=== PATIENT | male | born 1990 | race Caucasian/White ===

== ENCOUNTER 2017-02-25 17:04 | Emergency (ER) | payer OTHER ==
[~2017-02-25] VITALS: Ht 177.8 cm; Wt 99.0 kg
[2017-02-25] MEDS ORDERED: TYLE325T5 PO (17:36)
[2017-02-25] MEDS ORDERED: TRAZ-136 PO (17:36)
[2017-02-25] MEDS ORDERED: PROZ10CA7 PO (17:36)
[2017-02-25 19:13] LABS: MEAN CORPUSCULAR HEMOGLOBIN 29.8 pg (27.0-33.0); MEAN CORPUSCULAR HGB CONC 34.2 g/dl (32.0-36.5); MEAN CORPUSCULAR VOLUME 87.1 fl (80.0-96.0); RED CELL DISTRIBUTION WIDTH 12.2 % (11.5-14.5); WHITE BLOOD COUNT 7.6 K/mm3 (4.0-10.0)
[2017-02-25 19:41] LABS: METHADONE URINE NEGATIVE (NEGATIVE)
[2017-02-25 19:44] LABS: ALBUMIN 4.1 GM/DL (3.2-5.2); ALBUMIN/GLOBULIN RATIO 1.58 (1.00-1.93); ALKALINE PHOSPHATASE 60 U/L (45-117); ALT/SGPT 22 U/L (12-78); ANION GAP 9 MEQ/L (8-16); AST/SGOT 20 U/L (15-37); BILIRUBIN,DIRECT 0.1 MG/DL (0.0-0.2); BILIRUBIN,TOTAL 0.4 MG/DL (0.2-1.0); BLOOD UREA NITROGEN 19 MG/DL (7-18); CALCIUM LEVEL 8.6 MG/DL (8.5-10.1); CARBON DIOXIDE LEVEL 28 MEQ/L (21-32); CHLORIDE LEVEL 105 MEQ/L (98-107); CREATININE FOR GFR 1.35 MG/DL (0.70-1.30); GLOMERULAR FILTRATION RATE > 60.0 (>60); GLUCOSE, FASTING 103 MG/DL (70-105); POTASSIUM SERUM 4.2 MEQ/L (3.5-5.1); SODIUM LEVEL 142 MEQ/L (136-145); TOTAL PROTEIN 6.7 GM/DL (6.4-8.2)
[2017-02-25 20:23] VITALS: BP 122/72
== END 2017-02-25 20:24 | disposition home or self-care (01) ==
LOC: M ED 17:04
DX: F32.9 Major depressive disorder, single episode, unspecified (principal); G47.00 Insomnia, unspecified; M54.9 Dorsalgia, unspecified; F17.210 Nicotine dependence, cigarettes, uncomplicated; Z79.899 Other long term (current) drug therapy
CPT/HCPCS: 36415; 80048; 80076; 80307; 84443; 85027; 99284; G0480

== ENCOUNTER 2017-03-13 20:03 | Inpatient (IN) | payer OTHER ==
[~2017-03-13] VITALS: Ht 180.3 cm; Wt 94.8 kg
[~2017-03-13 20:03] MED LIST: PROZ10CA7 PO; TRAZ-136 PO; TYLE325T5 PO
[2017-03-13 21:11] LABS: MEAN CORPUSCULAR HEMOGLOBIN 29.8 pg (27.0-33.0); MEAN CORPUSCULAR HGB CONC 33.5 g/dl (32.0-36.5); MEAN CORPUSCULAR VOLUME 89.1 fl (80.0-96.0); RED CELL DISTRIBUTION WIDTH 12.4 % (11.5-14.5); WHITE BLOOD COUNT 6.4 K/mm3 (4.0-10.0)
[2017-03-13 21:29] LABS: METHADONE URINE NEGATIVE (NEGATIVE)
[2017-03-13] MEDS ORDERED: ACET-683 PO (21:39)
[2017-03-13 21:41] LABS: ALBUMIN 4.1 GM/DL (3.2-5.2); ALBUMIN/GLOBULIN RATIO 1.46 (1.00-1.93); ALKALINE PHOSPHATASE 63 U/L (45-117); ALT/SGPT 23 U/L (12-78); ANION GAP 7 MEQ/L (8-16); AST/SGOT 25 U/L (15-37); BILIRUBIN,DIRECT 0.1 MG/DL (0.0-0.2); BILIRUBIN,TOTAL 0.4 MG/DL (0.2-1.0); BLOOD UREA NITROGEN 26 MG/DL (7-18); CALCIUM LEVEL 8.8 MG/DL (8.5-10.1); CARBON DIOXIDE LEVEL 30 MEQ/L (21-32); CHLORIDE LEVEL 107 MEQ/L (98-107); CREATININE FOR GFR 1.24 MG/DL (0.70-1.30); GLOMERULAR FILTRATION RATE > 60.0 (>60); GLUCOSE, FASTING 85 MG/DL (70-105); POTASSIUM SERUM 4.2 MEQ/L (3.5-5.1); SODIUM LEVEL 144 MEQ/L (136-145); TOTAL PROTEIN 6.9 GM/DL (6.4-8.2)
[2017-03-13] MEDS ORDERED: ACETAMINOPHEN TAB 650MG DOSE (2X325MG) PO PRN (23:45)
[2017-03-13] MEDS ORDERED: MOM 30ML SUSPENSION UDC PO PRN (23:45)
[2017-03-13] MEDS ORDERED: MAALOX 30 ML SUSP *UDC PO PRN (23:45)
[2017-03-14 06:18] VITALS: BP 119/59
--- NOTE | 2017-03-14 10:46 | HPEPDOC ---
Medical History and Physical Date of Admission Mar 13, 2017 at 23:40 History and Physical PCP: PSYCHIATRIC ATTENDING: Dr. Adan Armenta HPI: 27yoM admitted to [facility] for unspecified depressive disorder, being medically examined today. No acute medical complaints today. Denies any fevers, chills, weakness, fatigue, FINNEY, CP, SOB, cough, palpitations, abdominal pain, N/V /D or changes in bowel or bladder habits. PMHx: insomnia anxiety depression H/O SI PSHX: denies SOCHX: Resides in: [place], from [place] Marital Status: single Kids: none Employment: Active duty Tobacco use: 2 pp week ETOH: 1-2 weekends Illicit Drugs: Denies IV Drug Use: Denies Tattoos done unprofessionally: Denies FAMHX: Mother: Alive, well Father: Alive, CAD Siblings: Alive, well Children: none Unexpected deaths due to medical reasons: None. ROS: As noted in HPI, otherwise 11pt ROS of systems reviewed and unremarkable. PE: GEN: 27yoM, appears stated age. Well-nourished, well developed. No acute distress. Alert and oriented x 3. Pleasant, interactive. HEENT: Normocephalic, atraumatic. Pupils are equal, round, and reactive to light. Extraocular movements are intact. No nystagmus appreciated. Sclera are nonicteric. Conjunctiva without injection. Nose midline. Nasal turbinates without bogginess. EACs both patent BL. TMs both visualized and fong with good cone of light, no bulging or erythema. No facial asymmetry. Moist mucous membranes. Dentition fair. Pharynx pink and moist, no cobblestoning. Neck supple , trachea midline. No lymphadenopathy or thyromegaly appreciated. CHEST: Regular rate and rhythm, +S1, +S2 LUNGS: Clear to auscultation bilaterally. No wheezes, rales, or rhonchi. Breathing appears symmetric and easy. Patient is speaking in full sentences. No accessory muscle use. ABD: Round, soft, non-tender, non-distended. +Bowel sounds throughout. No rebound or guarding. No costovertebral angle tenderness. EXT: Pulses 2+ bilaterally dorsalis pedis and radial. No lower extremity edema appreciated. SKIN: [place], dry, warm. Capillary refill <2sec. No rashes. NEURO: Alert and oriented x 3. Cranial nerves III-XII are intact. No focal deficits appreciated. EKG: pending. A&P: 27yoM admitted to [facility] for unspecified depressive disorder 1. Psych. Plan per Psychiatry. Obtain baseline EKG to assure the safety of psychiatric medications as they can prolong the QT interval. 2. Nicotine dependence. Patch available. 3. Follow up with PCP on discharge. 4. Staff member Ed present throughout exam. Vital Signs Vital Signs Date Time Temp Pulse Resp B/P (MAP) Pulse Ox O2 Delivery O2 Flow Rate FiO2 03/14/17 06:18 98.5 68 16 119/59 (79) 03/14/17 00:08 98 Room Air Laboratory Data Labs 24H Laboratory Tests 2 03/13/17 20:57: Anion Gap 7L, Glomerular Filtration Rate > 60.0, Calcium Level 8.8, Aspartate Amino Transf (AST/SGOT) 25, Alanine Aminotransferase (ALT/SGPT) 23, Alkaline Phosphatase 63, Total Bilirubin 0.4, Direct Bilirubin 0.1, Total Protein 6.9, Albumin 4.1, Albumin/Globulin Ratio 1.46, Thyroid Stimulating Hormone (TSH) 2.110, Salicylates Level < 1.7L, Urine Amphetamines Screen NEGATIVE, Urine Benzodiazepines Screen NEGATIVE, Urine Opiates Screen NEGATIVE, Urine Methadone Screen NEGATIVE, Acetaminophen Level < 2.0L, Urine Barbiturates Screen NEGATIVE , Urine Phencyclidine Screen NEGATIVE, Urine Cocaine Metabolite Screen NEGATIVE , Urine Cannabinoids Screen NEGATIVE, Ethyl Alcohol Level < 0.003 CBC/BMP Laboratory Tests 03/13/17 20:57 Red Blood Count 4.94, Mean Corpuscular Volume 89.1, Mean Corpuscular Hemoglobin 29.8, Mean Corpuscular Hemoglobin Concent 33.5, Red Cell Distribution Width 12.4 Home Medications Scheduled Fluoxetine HCl (Prozac) 10 Mg Cap, 10 MG PO DAILY Trazodone HCl (Trazodone HCl) 100 Mg Tab, 100 MG PO QHS Scheduled PRN Acetaminophen (Acetaminophen Extra Stren) 500 Mg Tab, 1,000 MG PO Q6H PRN for HEADACHE OR PAIN Allergies Coded Allergies: No Known Drug Allergy (Verified Allergy, Unknown, 03/13/17) Litzy Gutierrez Mar 14, 2017 10:46
[2017-03-14 12:00] VITALS: BP 139/63
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
[2017-03-14] MEDS: NICOTINE 14 MG/24 HR TRANSDERMAL TD SCH (16:34)
[2017-03-14 18:00] VITALS: BP 111/53
[2017-03-15 06:50] VITALS: BP 126/67
[2017-03-15] MEDS: NICOTINE 14 MG/24 HR TRANSDERMAL TD SCH (08:33)
[2017-03-15] MEDS ORDERED: hydrOXYzine 25 MG TAB PO PRN (15:00)
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
--- NOTE | 2017-03-15 16:00 | ECGEPIP ---
Stationary ECG Study [facility] Test Date: 2017-03-15 Pat Name: SHUKRI BAIRES Department: Room: [place] [address] Gender: M Community Director: MANUEL : 1990 Requested By: Litzy Gutierrez Order Number: [id number] Reading MD: Gardenia Fry Measurements Intervals [place] Rate: 51 P: 57 [place]: 163 QRS: 79 QRSD: 98 T: 14 QT: 410 QTc: 379 Interpretive Statements SINUS BRADYCARDIA ST ELEVATION, PROBABLY EARLY REPOLARIZATION SEPTAL LEADS INF T WAVE ABN NO PRIOR Electronically Signed On 03-15-2017 16:00:05 EDT by Gardenia Fry
[2017-03-15 18:00] VITALS: BP 116/60
[2017-03-16 06:00] VITALS: BP 117/85
[2017-03-16] MEDS: NICOTINE 14 MG/24 HR TRANSDERMAL TD SCH (08:09)
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
[2017-03-16 18:00] VITALS: BP 138/63
[2017-03-16] MEDS: traZODone 100 MG TAB PO PRN (21:01)
[2017-03-17 06:42] VITALS: BP 116/55
[2017-03-17] MEDS: NICOTINE 14 MG/24 HR TRANSDERMAL TD SCH ×2 (09:00→12:44)
--- NOTE | 2017-03-17 10:51 | MHIPNPDOC ---
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 He still expresses a lot of frustration about the way that he has been treated by some people in the [employer]. Reports he is responding well to medication , is eating well, feels less angry and depressed. VITAL SIGNS: See below. NEW TEST RESULTS: N/A CURRENT MEDICATIONS: See below. MENTAL STATUS EXAMINATION: Patient is a 27-year old male, who is alert, cooperative with good eye contact, dressed in personal close. Speech: Is spontaneous and fluid. Language skills are good. Thought processes including: Intact. Thought content: Angry about all the events that took place at [place] and let him to his inpatient hospitalization. Abstract reasoning, and computation: Good. Description of associations: Good. Description of abnormal or psychotic thoughts: Denies auditory and visual hallucinations, denies thought delusions and denies homicidal or suicidal thoughts. Judgment: Fair. Insight: Fair. Orientation: Oriented 3. Recent and remote memory: Intact. Attention span and concentration: Fair. Language: Normal. Fund of knowledge: Adequate. Mood: Slightly irritable. Affect: Congruent to mood. DIAGNOSES: 1. Adjustment disorder with depressed mood versus major depressive disorder 2. Unspecified Anxiety Disorder, r/o situational vs. generalized anxiety disorder 3. Unspecified Trauma-Stressor Related Disorder, r/o PTSD ASSESSMENT: ASSESSMENT: Patient has had a good response to medications, is finding that attending groups has been useful to him. We will need to continue attending groups, will benefit from psychotherapy and talking to his chain of command about his problems. MANAGEMENT PLAN: Continue with current medications, encourage him to keep attending groups. TIME SPENT: 30 minutes. Vital Signs Vital Signs Date Time Temp Pulse Resp B/P (MAP) Pulse Ox O2 Delivery O2 Flow Rate FiO2 03/17/17 06:42 98.1 53 16 116/55 (75) 03/15/17 06:50 Room Air 03/14/17 00:08 98 Current Medications Current Medications Acetaminophen (Tylenol Tab) 650 mg Q6HP PRN PO HEADACHE or DISCOMFORT; Start at 23:45; Stop 04/12/17 at 23:44 Al Hydrox/Mg Hydrox/Simethicone (Mylanta) 30 ml Q4HP PRN PO HEARTBURN/ INDIGESTION; Start 03/13/17 at 23:45; Stop 04/12/17 at 23:44 Aripiprazole (AbiLIFY) 5 mg QAM PO Last administered on 03/17/17 08:28; Start 03/15/17 at 09:00; Stop 04/14/17 at 08:59 Home Med (Med Rec Complete!) ASDIRECTED XX ; Start 03/13/17 at 21:45; Stop at 21:45; Status DC Hydroxyzine HCl (Atarax) 25 mg Q6HP PRN PO ANXIETY; Start 03/15/17 at 15:00; Stop 04/14/17 at 14:59 Magnesium Hydroxide (Milk Of Magnesia) 30 ml DAILYPRN PRN PO CONSTIPATION; Start 03/13/17 at 23:45; Stop 04/12/17 at 23:44 Nicotine (Nicoderm Cq 14mg) 1 patch DAILY TD ; Start 03/14/17 at 09:00; Stop at 08:59 Trazodone HCl (Desyrel) 100 mg QHSP PRN PO INSOMNIA Last administered on 21:01; Start 03/13/17 at 23:45; Stop 04/12/17 at 23:44 Allergies Coded Allergies: No Known Drug Allergy (Verified Allergy, Unknown, 03/13/17) RADU TREVINO MD Mar 17, 2017 10:51
[2017-03-17 18:00] VITALS: BP 145/72
[2017-03-17] MEDS: traZODone 100 MG TAB PO PRN (21:16)
[2017-03-18 06:34] VITALS: BP 130/64
[2017-03-18] MEDS: NICOTINE 14 MG/24 HR TRANSDERMAL TD SCH (08:10)
--- NOTE | 2017-03-18 09:22 | IPNPDOC ---
Date Seen The patient was seen on 03/18/17. Progress Note HPI: 27yoM admitted to [facility] for unspecified depressive disorder, being medically examined today. Reports today that he has constant neck pain, mid back pain, and low back pain. He states the pain has been going on for a few months, began last year. And that he had an injury during [employer] school in 2016. He states he has seen his PCP previously with imaging indicating muscular spasm. He states he usually uses Tylenol for the pain. He states that if he is marching, doing PT, or standing information sometimes he has severe pain. He states the pain is achy down his spine. There is no radiation of pain down the arms or down the legs. No weakness in upper or lower extremities. No paresthesias in upper or lower extremities. No loss of bowel or bladder control. Denies any fevers, chills, weakness, fatigue, FINNEY, CP, SOB, cough, palpitations , abdominal pain, N/V/D or changes in bowel or bladder habits. PMHx: insomnia anxiety depression H/O SI PSHX: denies PE: GEN: 27yoM, appears stated age. Well-nourished, well developed. No acute distress. Alert and oriented x 3. Pleasant, interactive. HEENT: Normocephalic, atraumatic. Pupils are equal, round, and reactive to light. Extraocular movements are intact. No nystagmus appreciated. Sclera are nonicteric. Conjunctiva without injection. Nose midline. Nasal turbinates without bogginess. EACs both patent BL. TMs both visualized and fong with good cone of light, no bulging or erythema. No facial asymmetry. Moist mucous membranes. Dentition fair. Pharynx pink and moist, no cobblestoning. Neck supple , trachea midline. No lymphadenopathy or thyromegaly appreciated. CHEST: Regular rate and rhythm, +S1, +S2 LUNGS: Clear to auscultation bilaterally. No wheezes, rales, or rhonchi. Breathing appears symmetric and easy. Patient is speaking in full sentences. No accessory muscle use. ABD: Round, soft, non-tender, non-distended. +Bowel sounds throughout. No rebound or guarding. No costovertebral angle tenderness. EXT: Pulses 2+ bilaterally dorsalis pedis and radial. No lower extremity edema appreciated. SKIN: [place], dry, warm. Capillary refill <2sec. No rashes. NEURO: Alert and oriented x 3. Cranial nerves III-XII are intact. No focal deficits appreciated. Strength is normal in upper and lower extremities. No loss of sensation. There is currently no tenderness with palpation over the spine. EKG: SINUS BRADYCARDIA ST ELEVATION, PROBABLY EARLY REPOLARIZATION SEPTAL LEADS INF T WAVE ABN NO PRIOR A&P: 27yoM admitted to [facility] for unspecified depressive disorder 1. Psych. Plan per Psychiatry. EKG on file. 2. Nicotine dependence. Patch available. 3. Chronic neck pain/mid back pain/low back pain. Request x-ray of the cervical spine, thoracic spine, lumbosacral spine. Continue with Tylenol 650 mg every 6 hours as needed. Patient declines pain management opinion. Consider pain management if needed. Plan for Outpatient follow-up with PCP. 4. Follow up with PCP on discharge. 5. Staff member Lisseth LAI present throughout exam. VS, I&O, 24H, Fishbone Vital Signs/I&O Vital Signs Date Time Temp Pulse Resp B/P (MAP) Pulse Ox O2 Delivery O2 Flow Rate FiO2 03/18/17 06:34 98.0 61 16 130/64 (86) Room Air 03/14/17 00:08 98 Laboratory Data 24H LABS Item Value Date Time White Blood Count 6.4 K/mm3 03/13/172056 Red Blood Count 4.94 M/mm3 03/13/172056 Hemoglobin 14.7 g/dl 03/13/172056 Hematocrit 44.0 % 03/13/172056 Mean Corpuscular Volume 89.1 fl 03/13/172056 Mean Corpuscular Hemoglobin 29.8 pg 03/13/172056 Mean Corpuscular Hemoglobin Concent 33.5 g/dl 03/13/172056 Red Cell Distribution Width 12.4 % 03/13/172056 Platelet Count 187 k/mm3 03/13/172056 Sodium Level 144 MEQ/L 03/13/172056 Potassium Level 4.2 MEQ/L 03/13/172056 Chloride Level 107 MEQ/L 03/13/172056 Carbon Dioxide Level 30 MEQ/L 03/13/172056 Anion Gap 7 MEQ/L L 03/13/172056 Blood Urea Nitrogen 26 MG/DL H 03/13/172056 Creatinine 1.24 MG/DL 03/13/172056 Glomerular Filtration Rate > 60.0 03/13/172056 Fasting Glucose 85 MG/DL 03/13/172056 Calcium Level 8.8 MG/DL 03/13/172056 Total Bilirubin 0.4 MG/DL 03/13/172056 Direct Bilirubin 0.1 MG/DL 03/13/172056 Aspartate Amino Transf (AST/SGOT) 25 U/L 03/13/172056 Alanine Aminotransferase (ALT/SGPT) 23 U/L 03/13/172056 Alkaline Phosphatase 63 U/L 03/13/172056 Total Protein 6.9 GM/DL 03/13/172056 Albumin 4.1 GM/DL 03/13/172056 Albumin/Globulin Ratio 1.46 03/13/172056 Thyroid Stimulating Hormone (TSH) 2.110 uIU/ML 03/13/172056 Litzy Gutierrez Mar 18, 2017 09:22
--- NOTE | 2017-03-18 15:02 | MHIPNPDOC ---
[facility] Progress Note Progress Note DATE OF SERVICE: 03/18/17 HISTORY: ID: Patient is a 27-year-old male, single, domiciled since Dec 2015, from [facility], was living with Uncle & Aunt, no kids, PPH one ER visit 2 weeks ago for depression, following up with behavioral health [place] [employer] for about a year for psychotherapy and medication management and currently on Prozac, trazodone and gabapentin, no previous psych admissions, no substance abuse, h/o Tylenol OD 20yo- no treatment, [facility] head injury in 2013- LOC, BIB [place], yesterday for SI & depression. Patient was seen and evaluated for his progress in the inpatient psychiatry Unit. On evaluation, patient reported that he has been feeling better and less sad and irritable. He reported that he has been going to the group activities in the unit and likes the new ways of communication, thought in the unit. He also reported that he tried to use role-playing to understand other peoples perspective while discussing some situations which are problematic for him multiple times in the past. He thinks that he is able to understand other's perspective much better playing this role and seeing how he is perceived by others. He reported being compliant with the medications and denies any side effects. Also, reported sleeping and eating better. He wants to continue current treatment, even when he leaves the hospital. Discussed about early symptoms of sadness and how to seek help. He continued to deny any suicidal or homicidal ideations, intentions or plans and reported with the current treatment , His mood has been stabilizing more. VITAL SIGNS: See below. CURRENT MEDICATIONS: See below. MENTAL STATUS EXAMINATION: 27yo male sitting in the chair, looks appropriate for the stated age, fair hygiene and grooming, normal psychomotor activities, no abnormal movements, cooperative with fair eye contact,speech is normal in rate, rhythm, amount and prosody, mood is 'fine', affect full and mood congruent, thought process is logical and goal directed, denies suicidal and homicidal ideations, denies hallucinations, no delusions elicited, aaox3, limited insight, fair judgement and impulse control DIAGNOSES: 1. Adjustment disorder with depressed mood versus major depression disorder. History of ADHD 2., Rule out PTSD. 3.. Rule out anxiety disorder. ASSESSMENT: Biologically, not having any family history of psychiatric illness can be protective for the patient while having head injury in 2012 can be perpetuating factor having no substance abuse and medical problems can be protective Psychologically, patient seems to have poor coping skills and defense mechanisms of projection, splitting, and aggression Socially, possible negligence of the biological mother leading up to CPS case can be perpetuating factor for the patient. Financial problems and stresses at work can also be perpetuating factors MANAGEMENT PLAN: We'll titrate the dose of Abilify. Start hydroxyzine 25 mg every 6 hours when necessary for anxiety and agitation. TIME SPENT:. 15 minutes. Vital Signs Vital Signs Date Time Temp Pulse Resp B/P (MAP) Pulse Ox O2 Delivery O2 Flow Rate FiO2 03/18/17 06:34 98.0 61 16 130/64 (86) Room Air 03/14/17 00:08 98 Current Medications Current Medications Acetaminophen (Tylenol Tab) 650 mg Q6HP PRN PO HEADACHE or DISCOMFORT; Start at 23:45; Stop 04/12/17 at 23:44 Al Hydrox/Mg Hydrox/Simethicone (Mylanta) 30 ml Q4HP PRN PO HEARTBURN/ INDIGESTION; Start 03/13/17 at 23:45; Stop 04/12/17 at 23:44 Aripiprazole (AbiLIFY) 5 mg QAM PO Last administered on 03/18/17 08:09; Start 03/15/17 at 09:00; Stop 04/14/17 at 08:59 Home Med (Med Rec Complete!) ASDIRECTED XX ; Start 03/13/17 at 21:45; Stop at 21:45; Status DC Hydroxyzine HCl (Atarax) 25 mg Q6HP PRN PO ANXIETY; Start 03/15/17 at 15:00; Stop 04/14/17 at 14:59 Magnesium Hydroxide (Milk Of Magnesia) 30 ml DAILYPRN PRN PO CONSTIPATION; Start 03/13/17 at 23:45; Stop 04/12/17 at 23:44 Nicotine (Nicoderm Cq 14mg) 1 patch DAILY TD Last administered on 03/17/17 12: 44; Start 03/14/17 at 09:00; Stop 04/13/17 at 08:59 Trazodone HCl (Desyrel) 100 mg QHSP PRN PO INSOMNIA Last administered on 8/27/ 17at 21:16; Start 03/13/17 at 23:45; Stop 04/12/17 at 23:44 Allergies Coded Allergies: No Known Drug Allergy (Verified Allergy, Unknown, 03/13/17) CARON CHAVEZ MD Mar 18, 2017 15:02
--- NOTE | 2017-03-18 15:30 | REP ---
Cervical spine series: Eight views. History: Neck pain. Findings: Lateral views done in flexion, extension and neutral position show preserved vertebral body heights and normal alignment. Disc spaces are maintained. AP and open mouth odontoid views are unremarkable. Oblique images demonstrate intact neural foramina bilaterally at each cervical level. Facets are normally aligned. Swimmers lateral view shows no additional abnormality. Impression: Negative cervical spine radiographs. Signed by Jeremias Chambers MD 03/18/2017 06:35 P
--- NOTE | 2017-03-18 15:31 | REP ---
Lumbar spine series: Five views. History: Pain. Findings: Five views of the lumbar spine show preserved vertebral body heights and normal alignment. Pedicles and posterior elements are intact. Disc spaces are maintained. Psoas margins are symmetric. There is no evidence of spondylolysis or spondylolisthesis. Impression: Negative lumbar spine radiographs. Signed by Jeremias Chambers MD 03/18/2017 06:36 P
--- NOTE | 2017-03-18 15:32 | REP ---
Thoracic spine series: Two views. History: Pain. Findings: There is discogenic spurring anteriorly at the mid and lower thoracic levels. This is consistent with some degenerative disc disease. Pedicles and posterior elements are intact. No curvature is seen. No bony destructive lesion is seen. No paravertebral soft-tissue mass noted. Impression: Discogenic spurring at the mid and lower thoracic levels. Otherwise negative. Signed by Jeremias Chambers MD 03/18/2017 06:36 P
[2017-03-18 18:00] VITALS: BP 138/61
[2017-03-18] MEDS: traZODone 100 MG TAB PO PRN (21:12)
[2017-03-19 07:01] VITALS: BP 124/63
[2017-03-19] MEDS: NICOTINE 14 MG/24 HR TRANSDERMAL TD SCH (08:06)
--- NOTE | 2017-03-19 14:34 | MHIPNPDOC ---
[facility] Progress Note Progress Note DATE OF SERVICE: 03/19/17 HISTORY: ID: Patient is a 27-year-old male, single, domiciled since Dec 2015, from [facility], was living with Uncle & Aunt, no kids, PPH one ER visit 2 weeks ago for depression, following up with behavioral health in the [place] for about a year for psychotherapy and medication management and currently on Prozac, trazodone and gabapentin, no previous psych admissions, no substance abuse, h/o Tylenol OD 20yo- no treatment, [facility] head injury in 2013- LOC, BIB [place] for SI & depression. Patient was seen and evaluated. He talked about his suicide attempt with overdose at the age of 20 years and reported that everyone around him look down to him when he is the one who is suffering and that's why he chose not to get any treatment, even after taking overdose of Tylenol. Even this time when he was having suicidal ideations with plans to overdose, he talked about not getting any help and just take the overdose and hope to . Encouraged patient to seek help when he is feeling depressed and also discussed about safety planning. Patient reported that he has never been explained about safety planning at [facility]. After answering certain questions, He was willing to engage in safety planning and willing to call 911 or talk with chain of command if he is having suicidal ideations come back again. Patient continued to worry about article 15 from [employer] and getting demoted, which will further increase his financial problems and increase his stressors. Discussed about ways to get help to decrease stresses and is planning to pursue a part- time job, which may help to pay the bills. Patient seems to be improving in mood with current treatment and denies any mood swings recently, which he used to have while being on Prozac, discussed about when necessary medications for anxiety and agitation and he reported that he would like to use them even when he is discharged from the hospital. He reported that he is learning new coping skills but the real test of those skills will be when he is back in the [place] and will need when necessary medications Under stress. VITAL SIGNS: See below. CURRENT MEDICATIONS: See below. MENTAL STATUS EXAMINATION: 27yo male sitting in the chair, looks appropriate for the stated age, fair hygiene and grooming, normal psychomotor activities, no abnormal movements, cooperative with fair eye contact,speech is normal in rate, rhythm, amount and prosody, mood is 'nervous', affect full and mood congruent, thought process is logical and goal directed, denies suicidal and homicidal ideations, denies hallucinations, no delusions elicited, aaox3, limited insight, fair judgement and impulse control DIAGNOSES: 1. Adjustment disorder with depressed mood versus major depression disorder. History of ADHD 2., Rule out PTSD. 3.. Rule out anxiety disorder. ASSESSMENT: Biologically, not having any family history of psychiatric illness can be protective for the patient while having head injury in 2013 can be perpetuating factor having no substance abuse and medical problems can be protective Psychologically, patient seems to have poor coping skills and defense mechanisms of projection, splitting, and aggression Socially, possible negligence of the biological mother leading up to CPS case can be perpetuating factor for the patient. Financial problems and stresses at work can also be perpetuating factors MANAGEMENT PLAN: Continue current treatment, patient is willing to work with outpatient treatment providers for further changes in meds. TIME SPENT:. 15 minutes. Vital Signs Vital Signs Date Time Temp Pulse Resp B/P (MAP) Pulse Ox O2 Delivery O2 Flow Rate FiO2 03/19/17 07:01 98.1 53 16 124/63 (83) Room Air 03/14/17 00:08 98 Current Medications Current Medications Acetaminophen (Tylenol Tab) 650 mg Q6HP PRN PO HEADACHE or DISCOMFORT; Start at 23:45; Stop 04/12/17 at 23:44 Al Hydrox/Mg Hydrox/Simethicone (Mylanta) 30 ml Q4HP PRN PO HEARTBURN/ INDIGESTION; Start 03/13/17 at 23:45; Stop 04/12/17 at 23:44 Aripiprazole (AbiLIFY) 5 mg QAM PO Last administered on 03/19/17t 08:06; Start 03/15/17 at 09:00; Stop 04/14/17 at 08:59 Home Med (Med Rec Complete!) ASDIRECTED XX ; Start 03/13/17 at 21:45; Stop at 21:45; Status DC Hydroxyzine HCl (Atarax) 25 mg Q6HP PRN PO ANXIETY; Start 03/15/17 at 15:00; Stop 04/14/17 at 14:59 Magnesium Hydroxide (Milk Of Magnesia) 30 ml DAILYPRN PRN PO CONSTIPATION; Start 03/13/17 at 23:45; Stop 04/12/17 at 23:44 Nicotine (Nicoderm Cq 14mg) 1 patch DAILY TD Last administered on 03/17/17 12: 44; Start 03/14/17 at 09:00; Stop 04/13/17 at 08:59 Trazodone HCl (Desyrel) 100 mg QHSP PRN PO INSOMNIA Last administered on 21:12; Start 03/13/17 at 23:45; Stop 04/12/17 at 23:44 Allergies Coded Allergies: No Known Drug Allergy (Verified Allergy, Unknown, 03/13/17) CARON CHAVEZ MD Mar 19, 2017 14:34
[2017-03-19] MEDS ORDERED: TRAZ10TA PO (17:31)
[2017-03-19] MEDS ORDERED: ARIP5TA PO (17:31)
[2017-03-19] MEDS ORDERED: HYDR-3363 PO (17:31)
[2017-03-19 18:10] VITALS: BP 116/54
[2017-03-19] MEDS: traZODone 100 MG TAB PO PRN (21:57)
[2017-03-20] MEDS: NICOTINE 14 MG/24 HR TRANSDERMAL TD SCH (08:17)
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
== END 2017-03-20 08:25 | disposition home or self-care (01) | DRG 881 ==
LOC: M ED 20:03 → M ED INP 23:40 → M PSY 03-14 00:25
PROVIDERS: ADMIT Psychiatry & Neurology Psychiatry; ATTEND Psychiatry & Neurology Psychiatry
DX: F43.21 Adjustment disorder with depressed mood (principal); F32.9 Major depressive disorder, single episode, unspecified; F41.9 Anxiety disorder, unspecified; M54.2 Cervicalgia; M54.5 Low back pain; M54.6 Pain in thoracic spine; G47.00 Insomnia, unspecified; F17.210 Nicotine dependence, cigarettes, uncomplicated; Z56.5 Uncongenial work environment; Z56.4 Discord with boss and workmates; Z91.5 Personal history of self-harm; Z79.899 Other long term (current) drug therapy

== ENCOUNTER 2017-09-04 21:47 | Emergency (ER) | payer OTHER ==
[2017-09-05] MEDS: NAPROXEN 250 MG TAB PO (00:27)
[2017-09-05] MEDS: CYCLOBENZAPRINE 10 MG TAB PO (00:27)
== END 2017-09-05 00:42 | disposition home or self-care (01) ==
LOC: M ED 21:47
DX: S39.012A Strain of muscle, fascia and tendon of lower back, initial encounter (principal); X50.0XXA Overexertion from strenuous movement or load, initial encounter; Y92.89 Other specified places as the place of occurrence of the external cause; F17.200 Nicotine dependence, unspecified, uncomplicated
CPT/HCPCS: 99283

== ENCOUNTER 2017-12-14 18:10 | Inpatient (IN) | payer OTHER ==
[2017-12-14 18:32] LABS: BEDSIDE GLUCOSE 139 MG/DL (70-105)
[2017-12-14 18:32] LABS: BASO # 0.1 10^3/uL (0.0-0.2); BASO % 0.7 % (0.0-1.0); EOS % 0.5 % (0.0-3.0); HEMATOCRIT 43.1 % (42.0-52.0); HEMOGLOBIN 14.6 g/dl (13.5-17.5); IMMATURE GRANULOCYTE % 0.4 % (0-3.0); LYMPH # 1.8 10^3/uL (1.5-6.5); LYMPH % 21.4 % (24.0-44.0); MEAN CORPUSCULAR HEMOGLOBIN 28.9 pg (27.0-33.0); MEAN CORPUSCULAR HGB CONC 33.9 g/dl (32.0-36.5); MEAN CORPUSCULAR VOLUME 85.2 fl (80.0-96.0); MONO # 0.7 10^3/uL (0.0-0.8); MONO % 8.6 % (0.0-5.0); NEUTROPHILS # 5.9 10^3/uL (1.8-7.7); NEUTROPHILS % 68.4 % (36.0-66.0); PLATELET COUNT, AUTOMATED 227 10^3/uL (150-450); RED BLOOD COUNT 5.06 10^6/uL (4.30-6.10); RED CELL DISTRIBUTION WIDTH 12.3 % (11.5-14.5); WHITE BLOOD COUNT 8.6 10^3/uL (4.0-10.0)
[2017-12-14 19:06] LABS: ACETAMINOPHEN LEVEL 2.7 UG/ML (10.0-30.0); ALBUMIN 3.6 GM/DL (3.2-5.2); ALBUMIN/GLOBULIN RATIO 1.09 (1.00-1.93); ALKALINE PHOSPHATASE 68 U/L (45-117); ALT/SGPT 24 U/L (12-78); ANION GAP 6 MEQ/L (8-16); AST/SGOT 17 U/L (7-37); BILIRUBIN,DIRECT 0.1 MG/DL (0.0-0.2); BILIRUBIN,TOTAL 0.3 MG/DL (0.2-1.0); BLOOD UREA NITROGEN 12 MG/DL (7-18); CALCIUM LEVEL 8.2 MG/DL (8.5-10.1); CARBON DIOXIDE LEVEL 29 MEQ/L (21-32); CHLORIDE LEVEL 108 MEQ/L (98-107); CPK CREATINE PHOSPHOKINASE 181 U/L (39-308); CREATININE FOR GFR 1.15 MG/DL (0.70-1.30); GLOMERULAR FILTRATION RATE > 60.0 (>60); GLUCOSE, FASTING 94 MG/DL (70-100); POTASSIUM SERUM 3.7 MEQ/L (3.5-5.1); SALICYLATE LEVEL < 1.7 MG/DL (5.0-30.0); SODIUM LEVEL 143 MEQ/L (136-145); TOTAL PROTEIN 6.9 GM/DL (6.4-8.2)
[2017-12-14] MEDS: CHARCOAL ACTIVATED LIQUID 25 GM/120 ML BTL PO (19:21)
[2017-12-14 19:34] LABS: ETHYL ALCOHOL (ETHANOL) < 0.003 % (0.000-0.010)
[2017-12-14 21:13] LABS: AMPHETAMINES LEVEL URINE NEGATIVE (NEGATIVE); BARBITURATES URINE NEGATIVE (NEGATIVE); BENZODIAZEPINES URINE NEGATIVE (NEGATIVE); CANNABINOIDS URINE NEGATIVE (NEGATIVE); COCAINE METABOLITE URINE NEGATIVE (NEGATIVE); METHADONE URINE NEGATIVE (NEGATIVE); OPIATES URINE NEGATIVE (NEGATIVE); PHENCYCLIDINE URINE NEGATIVE (NEGATIVE)
[2017-12-15] MEDS ORDERED: MAALOX 30 ML SUSP *UDC PO (01:30)
[2017-12-15] MEDS ORDERED: traZODone 50 MG TAB PO (01:30)
[2017-12-15] MEDS ORDERED: MOM 30ML SUSPENSION UDC PO (01:30)
[2017-12-15] MEDS ORDERED: ACETAMINOPHEN TAB 650MG DOSE (2X325MG) PO (01:30)
[2017-12-16] MEDS: guaiFENesin ER 600 MG TAB PO ×2 (15:20→21:12)
[2017-12-16] MEDS: diphenhydrAMINE 50 MG CAP PO (21:12)
[2017-12-17] MEDS: guaiFENesin ER 600 MG TAB PO (08:57)
== END 2017-12-17 12:10 | disposition home or self-care (01) | DRG 881 ==
LOC: M ED INP 12-15 01:24 → M PSY 12-15 03:20 → M ED 18:10
DX: F43.21 Adjustment disorder with depressed mood (principal); F43.10 Post-traumatic stress disorder, unspecified; Z63.0 Problems in relationship with spouse or partner; T43.212A Poisoning by selective serotonin and norepinephrine reuptake inhibitors, intentional self-harm, initial encounter; T39.312A Poisoning by propionic acid derivatives, intentional self-harm, initial encounter; F17.210 Nicotine dependence, cigarettes, uncomplicated; J30.9 Allergic rhinitis, unspecified; G47.00 Insomnia, unspecified; Z79.899 Other long term (current) drug therapy; Y92.009 Unspecified place in unspecified non-institutional (private) residence as the place of occurrence of the external cause